=== PATIENT | male | born 1935 | race Caucasian/White ===

== ENCOUNTER 2018-09-29 15:17 | Inpatient (IN) | payer OTHER ==
[~2018-09-29] VITALS: Ht 167.6 cm; Wt 83.1 kg
--- NOTE | ~2018-09-29 | OP ---
[address] [address] OPERATIVE REPORT Name: YOMAIRA YANCEY Room: [address] ADM IN M.R.#: [id number] Admission: 09/29/18 Attend Phys: Waqar Jacome MD Discharge: Date of : 37 Report #: [id number] THIS REPORT FOR: //name// CC: [facility] physician/PCP Waqar Jacome DATE OF SERVICE: 10/16/2018 PREOPERATIVE DIAGNOSIS: Right pneumothorax. POSTOPERATIVE DIAGNOSIS: Right pneumothorax. OPERATION: Placement of right chest tube, 28-Belgian. SURGEON: Estuardo Mullen MD ANESTHESIA: Local. ESTIMATED BLOOD LOSS: Minimal. SPECIMEN: None. DESCRIPTION OF PROCEDURE: After informed consent was obtained, the patient was placed supine on the ICU bed. The area was prepped and draped in the usual sterile fashion. Timeout was performed by dc and the ICU nurse. The area was prepped and draped in the usual sterile fashion. The area was anesthetized with 30 mL 1% lidocaine plain creating a field block. A 2 cm incision was made over the right fourth interspace. A finger dissection was carried out to the pleura. The pleura was incised sharply. A mcconnell of air was noted. A 28-Belgian chest tube was placed superiorly. It was then secured to the skin with a 2-0 silk suture and wrapped around the chest tube. Sterile occlusive dressing was applied. COMPLICATIONS: None. DISPOSITION: The patient will stay in ICU and a stat portable chest x-ray is pending. By: [id number] Mullen MD /nt
[2018-09-29 15:17] VITALS: BP 118/82
[2018-09-29 15:49] LABS: ABSOLUTE BASOPHILS 0.1 thou/uL (0.0-0.2); ABSOLUTE LYMPHOCYTES 2.5 thou/uL (0.8-5.3); ABSOLUTE MONOCYTES 1.4 thou/uL (0.0-1.2); ABSOLUTE NEUTROPHILS 14.3 thou/uL (1.6-8.1); BASOPHILS 0.5 %; EOSINOPHILS 0.1 %; HEMATOCRIT 42.7 % (42.0-52.0); HEMOGLOBIN 14.3 gm/dL (14.0-18.0); LYMPHOCYTES 13.6 %; MCH 29.3 pg (26.0-34.0); MCHC 33.6 g/dL (28.0-37.0); MCV 87.2 fL (80.0-100.0); MONOCYTES 7.6 %; MPV 9.2 fl. (7.2-11.1); NUCLEATED RBCS 0 /100WBC; PLATELET COUNT* 296 thou/uL (150-400); POLYS 78.2 %; RDW-CV 13.7 % (10.5-14.5); WBC 18.3 thou/uL (4.0-11.0)
[2018-09-29 15:54] LABS: BE -0.7 mmol/L (-2 to +3); PCO2 26.2 mmHg (35.0-45.0); PO2 61.7 mmHg (75.0-100.0); pH 7.514 (7.340-7.450)
[2018-09-29 15:58] LABS: INR 1.4; PROTIME 13.8 Seconds (9.20-11.50)
[2018-09-29 16:55] LABS: ANION GAP 17 mmol/L (7-16); BUN 34 mg/dL (7-18); CALCIUM 8.6 mg/dL (8.5-10.1); CHLORIDE 100 mmol/L (98-107); CO2 19 mmol/L (21-32); CREATININE 1.7 mg/dL (0.6-1.3); GLUCOSE 136 mg/dL (70-99); POTASSIUM 4.5 mmol/L (3.5-5.1); SODIUM 136 mmol/L (136-145)
[2018-09-29 17:06] LABS: ALBUMIN 2.5 g/dL (3.4-5.0); ALKALINE PHOSPHATASE 142 U/L (46-116); LIPASE 68 U/L (73-393); NT-PRO BRAIN NAT PEPTIDE 3757 pg/mL (<300); SGOT 79 U/L (15-37); SGPT 88 U/L (30-65); TOTAL BILIRUBIN 1.9 mg/dL (<0.1-1.0); TOTAL PROTEIN 7.1 g/dL (6.4-8.2); TROPONIN-I LEVEL <0.06 ng/mL (<0.06)
[2018-09-29 18:25] VITALS: BP 118/74
[2018-09-29 18:42] VITALS: BP 168/75
[2018-09-29] MEDS ORDERED: LOPRESSOR25 PO (18:58)
[2018-09-29] MEDS ORDERED: ASPIR 8181 M1 PO (18:58)
--- NOTE | 2018-09-29 19:15 | NUR ---
PT ADMITTED TO ROOM 232 VIA CART FROM ED AT APPROXIMATELY 1845. ADMISSION HISTORY COMPLETED. REFER TO CHARTING. FAMILY AT BEDSIDE. VSS. REPORT GIVEN TO FRIDA LIU RN.
[2018-09-29 20:40] VITALS: BP 137/76
[2018-09-30] VITALS: BP 145/76
[2018-09-30 05:34] VITALS: BP 173/88
--- NOTE | 2018-09-30 06:09 | NUR ---
AWAKE MOST OF SHIFT. ASSESSMENT DOCUMENTED. MEDS GIVEN PER -APR. PT REFUSED ASPIRIN THIS SHIFT. PT A&O 0-2 THIS SHIFT. PT VERY CONFUSED AND FORGETFUL. PT BECAME AGGITATED AND COMBATIVE THIS SHIFT, SCREAMING PROFANITIES STATING THAT WE ARE TRYING TO KILL HIM AND THAT THE STAFF HAD PUT A "BLUE BODY BAG" UNDER HIM. SECURITY CALLED TO ROOM PATIET INCREASING BECAME HOSTILE. PRN HALDOL GIVEN. PT STILL REFUSING TO WEAR O2, PULLED OFF HEART MONITOR, AND ATTEMPTING TO PULL OUT IV. NOTIFIED, ORDERS RECIEVED. CALLED PTS , SHE STATED THAT SHE WOULD BE UP HERE SOON SHE WOULD BE ABLE TO, "IN A COUPLE OF HOURS". PTS STATED THAT IT WAS NORMAL FOR HIM TO GET ANGRY WHEN HE BECOMES CONFUSED. HALDOL GIVEN PER , PT CURRENTLY CALM WITH HEART MONITOR, IV AND OXYGEN IN PLACE. WILL CONTINUE WITH PLAN OF CARE.
[2018-09-30 08:00] VITALS: BP 152/82
[2018-09-30 12:00] VITALS: BP 112/62
[2018-09-30 16:00] VITALS: BP 120/67
--- NOTE | 2018-09-30 16:23 | NUR ---
SW met with pt to complete initial assessment, introduce self, and SW role. Pt alert, [facility] and pt in room also [facility]. Pt lives at home with and has a supportive family. Pt has a cane and 2 RWs but does not use them. SW to continue to follow to assist with safe dc planning.
--- NOTE | 2018-09-30 16:34 | 2DMMODE ---
[place] [address] 2 D/M-MODE ECHOCARDIOGRAM Name: YANCEYBRANDY Room: [address] IN [facility]#: [id number] Admission: 09/29/18 Attend Phys: Waqar Jacome, Discharge: Date of : 37 Date of Service: 09/30/18 1633 Report #: [id number] THIS REPORT FOR: //name// APPROVED REPORT Study performed: 09/30/2018 14:18:50 EXAM: Comprehensive 2D, Doppler, and color-flow Echocardiogram Patient Location: In-Patient Room #: [facility] Status: routine BSA: 1.90 HR: 82 bpm BP: 112/62 mmHg Rhythm: NSR Other Information Study Quality: Adequate Indications Cardiomegaly 2D Dimensions IVSd: 13.44 (7-11mm) LVOT Diam: 21.02 (18-24mm) LVDd: 41.58 mm PWd: 11.63 (7-11mm) Ascending Ao: 36.24 (22-36mm) LVDs: 26.88 (25-40mm) Aortic Root: 34.72 mm Volumes Left Atrial Volume (Systole) LA ESV Index: 28.40 mL/m2 Aortic Valve AoV Peak Michael.: 2.58 m/s AO Peak Gr.: 26.69 mmHg LVOT Max P.93 mmHg AO Mean Gr.: 14.79 mmHg LVOT Mean P.20 mmHg LVOT Max V: 1.22 m/s AO V2 VTI: 44.95 cm LVOT Mean V: 0.83 m/s MALA (VTI): 1.91 cm2 LVOT V1 VTI: 24.72 cm Mitral Valve E/A Ratio: 0.88 MV Decel. Time: 360.52 ms MV E Max Michael.: 1.19 m/[place] [address] 2 D/M-MODE ECHOCARDIOGRAM Name: YANCEYBRANDY Room: [address] IN ..#: [id number] Admission: 09/29/18 Attend Phys: Waqar Jacome, Discharge: Date of : 37 Date of Service: 09/30/18 1633 Report #: [id number] MV PHT: 104.55 ms MVA (PHT): 2.10 cm2 TDI E/Lateral E': 13.22 E/Medial E': 17.00 Medial E' Michael.: 0.07 m/s Lateral E' Michael.: 0.09 m/s Pulmonary Valve PV Peak Michael.: 1.07 m/s PV Peak Gr.: 4.55 mmHg Left Ventricle The left ventricle is normal size. There is normal LV segmental wall motion. Mild concentric left ventricular hypertrophy. Left ventricular systolic function is normal. The left ventricular ejection fraction is within the normal range. LVEF is 60-65%. Grade I - abnormal relaxation pattern. Right Ventricle The right ventricle is normal size. The right ventricular systolic function is normal. Atria The left atrium size is normal. The right atrium size is normal. Aortic Valve Bioprosthetic aortic valve is present. No aortic regurgitation is present. Mild aortic stenosis. Mitral Valve Mild mitral annular calcification. Trace mitral regurgitation. No evidence of mitral valve stenosis. Tricuspid Valve The tricuspid valve is normal in structure. Unable to assess PA pressure. Trace tricuspid regurgitation. Pulmonic Valve Pulmonic valve is not well visualized. Trace pulmonic regurgitation. Great Vessels The aortic root is normal in size. IVC is normal in size and collapses >50% [place] [address] 2 D/M-MODE ECHOCARDIOGRAM Name: YOMAIRA YANCEY J Room: [address] IN [facility]#: [id number] Admission: 09/29/18 Attend Phys: Waqar Jacome, Discharge: Date of : 37 Date of Service: 09/30/18 1633 Report #: [id number] Pericardium There is no pericardial effusion. <Conclusion> Mild concentric left ventricular hypertrophy. LVEF is 60-65%. Bioprosthetic aortic valve is present. Mild aortic stenosis. <ELECTRONICALLY SIGNED> By: Glenroy South MD, [facility] 09/30/18 1633 1633 163 Glenroy South MD, [facility] /INF
--- NOTE | 2018-09-30 17:03 | EKG ---
[place] [address] ELECTROCARDIOGRAM REPORT Name: YOMAIRA YANCEY Room: [address] ADM IN [facility].#: [id number] Admission: 09/29/18 Attend Phys: Waqar Jacome MD Discharge: Date of : 37 Report #: [id number] THIS REPORT FOR: //name// [facility] ED Test Date: 2018-09-29 Test Time: 15:23:47 Pat Name: YOMAIRA YANCEY Department: Room: 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: [facility] : 1935 Requested By: Kaz Christian Order Number: [id number] MD: Glenroy South Measurements Intervals Paulina Rate: 151 P: IL: QRS: -12 QRSD: 135 T: 194 QT: 323 QTc: 513 Interpretive Statements multifocal atrial tachycardia Paired ventricular premature complexes Nonspecific intraventricular conduction delay Partial missing lead(s): V2 No previous ECG available for comparison Electronically Signed On 09-30-2018 17:02:47 CDT by Glenroy South [email or web address] <ELECTRONICALLY SIGNED> By: Glenroy South MD, [facility] 09/30/18 1702 1523 152 Glenroy South MD, [facility] /EPI
--- NOTE | 2018-09-30 18:57 | NUR ---
ASSUMED CARE OF PT AT 0730. PT RESTING IN BED. PT A&0X3, FORGETFUL AT TIMES, FOLLOWS COMMANDS, COOPERATIVE AND APPROPRIATE DURING THE DAY. AT APPROXIMATELY 1815, PT BECAME IMPULSIVE, TRYING TO GET OUT OF BED. ORIENTED X2. PT RE ORIENTED TO ROOM AND CALL LIGHT. PT HAD A GOOD DAY. PT UP TO CHAIR FOR MEALS, COMPLETE SET UP BATH AT SINK AND SHAVED WITH ASSISTANCE. PT DENIES ANY PAIN OR SHORTNESS OF BREATH THROUGHOUT SHIFT. PT AT BEDSIDE THIS AM AND AFTERNOON AND UPDATED ON CURRENT PLAN OF CARE. PT TRACING SR ON THE PRODUCT SAFETY COMPLIANCE LEADER THROUGHOUT SHIFT. ON 4L NC SAT 93-96%. PT UP WITH 1 ASSIST. AM ASSESSMENT CHARTED. MEDICATIONS PER APR. PT REPOSITIONS SELF WITH REMINDERS. HOURLY ROUNDING OBSERVED. BED IN LOW POSITION. CALL LIGHT WITHIN REACH. WILL CONTINUE PLAN OF CARE.
[2018-09-30 20:20] VITALS: BP 176/84
[2018-09-30 21:58] LABS: BE -7.3 mmol/L (-2 to +3); PCO2 25.9 mmHg (35.0-45.0)
[2018-09-30 22:01] LABS: PO2 58.1 mmHg (75.0-100.0)
--- NOTE | 2018-09-30 23:20 | NUR ---
PT'S O2 SAT WAS BETWEEN 79 AND LOW 80'S ON 4L NC. O2 BUMPED UP TO 6L, NO SIGNIFICANT CHANGE. RT PUT PT ON NRB 15L, PT STILL SATTING IN THE 80'S. DR MONTERROSO NOTIFIED. ABG ORDERED. PO2 CL AT 58.1, O2 SAT CL AT 87.5. CTA ORDERED, PT DOES NOT MEET CRTIERIA PER CT STAFF. ENGINEER CONDUCTOR (1.7) IS HIGHER THAN CUTOFF (1.3). GFR (39) IS LOWER THAN CUTOFF (46). CXRAY ORDERED, DDIMER LAB ORDERED. PT ON BIPAP. CONDUSED AND ATTEMPTED TO PULL MASK ODD SEVERALLY. SITTER IN PLACE NOW. WILL CONTINUE TO MONITOR.
[2018-10-01] VITALS (21 sets, daily range): BP systolic 83–156; BP diastolic 47–87
[2018-10-01 01:11] LABS: BE -5.2 mmol/L (-2 to +3); PCO2 33.9 mmHg (35.0-45.0); pH 7.369 (7.340-7.450)
[2018-10-01 01:16] LABS: PO2 189.9 mmHg (75.0-100.0)
[2018-10-01 05:21] LABS: HEMATOCRIT 41.1 % (42.0-52.0); HEMOGLOBIN 13.4 gm/dL (14.0-18.0); MCH 28.5 pg (26.0-34.0); MCHC 32.6 g/dL (28.0-37.0); MCV 87.5 fL (80.0-100.0); MPV 8.8 fl. (7.2-11.1); NUCLEATED RBCS 0 /100WBC; PLATELET COUNT* 342 thou/uL (150-400); RDW-CV 13.5 % (10.5-14.5); WBC 25.7 thou/uL (4.0-11.0)
[2018-10-01 05:43] LABS: CALCIUM 8.8 mg/dL (8.5-10.1); CREATININE 1.7 mg/dL (0.6-1.3); POTASSIUM 4.1 mmol/L (3.5-5.1)
--- NOTE | 2018-10-01 05:46 | NUR ---
PT ORIENTED TO SELF, PLACE AND SITUATION. CONFUSION AND FORGETFULNESS NOTED. BREATHING LABORED, OTHERWISE VSS. PT CURRENTLY ON BIPAP, RT TRIED CHANGING PT TO NRB THIS AM, PT BREATHING FAST. RT PUT PT BACK ON BIPAP. LOVENOX 80MG GIVEN THIS SHIFT FOR SUSPECTED PE. VQ SCHEDULED THIS AM @ 0800. PT HAS 1:1 SITTER THIS SHIFT DUE TO CONFUSION AND MULTIPLE ATTEMPTS TO REMOVE BIPAP MASK. HALDOL GIVEN THIS AM. CALL LIGHT WITHIN REACH. HOURLY ROUNDINGS MADE. WILL CONTINUE TO MONITOR.
[2018-10-01 06:07] LABS: ABSOLUTE LYMPHOCYTES 2.1 thou/uL (0.8-5.3); ABSOLUTE MONOCYTES 1.5 thou/uL (0.0-1.2); ABSOLUTE NEUTROPHILS 22.1 thou/uL (1.6-8.1); ANISOCYTOSIS 1+; PLATELET ESTIMATE ADEQUATE; POIKILOCYTOSIS 1+
--- NOTE | 2018-10-01 10:14 | NUR ---
Pt transferring to ICU 1 post VQ scan
[2018-10-01 10:54] LABS: BE -5.4 mmol/L (-2 to +3); PCO2 28.6 mmHg (35.0-45.0); PO2 62.8 mmHg (75.0-100.0); pH 7.409 (7.340-7.450)
--- NOTE | 2018-10-01 11:39 | NUR ---
ASSUMED CARE OF PT AT 0730. PT A&0 TO SELF AND TIME. BIPAP IN PLACE. TACHYPNEA NOTED- RESPIRATORY RATE IN THE 40'S-50'S. PRN HALDOL GIVEN WITH MINIMAL RELIEF. DR DOW NOTIFIED. ORDERS RECEIVED FOR ATIVAN AND TRANSFER TO ICU. ATIVAN GIVEN WITH NO RELIEF- PT CONTINUES TO BE AGITATED, PULLING AT BIPAP, MUMBLING. PT MORE RESTLESS AFTER RECEIVING ATIVAN. PT TRANSFERRED TO NUCLEAR MED FOR PERFUSION PART OF VQ SCAN AND THEN TRANSFERRED TO ICU BED 1 WITH ALL BELONGINGS AND CHART. REPORT GIVEN TO NIDA GARCIA. ATTEMPTED TO CONTACT , VOLODYMYR, UNABLE TO REACH HER.
--- NOTE | 2018-10-01 11:44 | NUR ---
CUDAY CATHETER INSERTED.
--- NOTE | 2018-10-01 12:00 | NUR ---
HEART RATE 130-[address] AT [address] WITH PACS. DR DOW NOTIFIED. REPORTED PT HAS NOT RECEIVED PO METOPROLOL. ASKED IF METOPROLOL CAN BE SWITCHED TO IV. NO ORDERS RECEIVED.
--- NOTE | 2018-10-01 12:57 | NUR ---
PT TRANSFERED TO ICU. PT CONFUSED, PULLING AT LINES, MUBLING. LABORED BREATHING, RESPIRATIONS 40'S -50'S. PER PREVIOUS RN ATIVAN MADE PT MORE ANXIOUS. DR NOTIFIED. RECEIVED ORDER FOR ONE TIME SHYAM TO ASSIST PT TO RELAX AND IMPROVE OXYGENATION. ANESTHEIA NOTIFIED FOR INTUBATION. AT THIS TIME PT APPEARED CLAM, RESTING WITH EYES CLOSE, RESONSIVE TO TOUCH, RESPIRATIONS IN 30-33. PER PULMONARY WILL MONITOR PT , REPEAT ABG'S AT 1400 REASSESS NEED FOR INTUBATION. RECEIVED ORDER IF PT HAD ANY CHANGES IN RESIRATORY STATUS TO NOTIFY DR. IF RESIRATIONS INCREASED AND PT NEEDED TO BE INTUBATED, PT CAN BE INTUBATED. AND DTR ABLE TO SPEAK WITH PULMONARY.
[2018-10-01 14:18] LABS: ANTI-Xa-UNFRACTIONATED HEP 7.442; BE -2.5 mmol/L (-2 to +3); PCO2 30.8 mmHg (35.0-45.0); PO2 77.7 mmHg (75.0-100.0); pH 7.442 (7.340-7.450)
--- NOTE | 2018-10-01 18:38 | NUR ---
PT INTUBATED AT 1807. 100 OF SUCCINATE AND 120 MG OF ETOMIDATE.
--- NOTE | 2018-10-01 18:49 | NUR ---
AFTER INTUBATION PT ST 100-140'S. DR DRAPER. AWAITING ORDERS.
[2018-10-01 19:36] LABS: BE -5.1 mmol/L (-2 to +3); PCO2 29.2 mmHg (35.0-45.0); PO2 105.1 mmHg (75.0-100.0); pH 7.411 (7.340-7.450)
[2018-10-01 19:42] LABS: CALCIUM 8.5 mg/dL (8.5-10.1); CREATININE 1.8 mg/dL (0.6-1.3); MAGNESIUM 2.4 mg/dL (1.8-2.4); PHOSPHORUS* 4.4 mg/dL (2.5-4.9); POTASSIUM 4.4 mmol/L (3.5-5.1)
[2018-10-01 19:47] LABS: URINE BILIRUBIN NEGATIVE (Negative); URINE BLOOD 1+ (Negative); URINE CLARITY CLEAR; URINE COLOR YELLOW; URINE GLUCOSE-RANDOM NEGATIVE (Negative); URINE KETONES NEGATIVE (Negative); URINE LEUKOCYTES-REFLEX NEGATIVE (Negative); URINE NITRITE-REFLEX NEGATIVE (Negative); URINE PROTEIN NEGATIVE (Negative); URINE UROBILINOGEN 0.2 E.U./dl (0.2-1.0)
[2018-10-01 19:56] LABS: AMP/METHAMP Negative (Negative); BARBITURATES Negative (Negative); BENZODIAZEPINES Negative (Negative); COCAINE Negative (Negative); METHADONE Negative (Negative); OPIATES Negative (Negative); PCP Negative (Negative); THC Negative (Negative)
[2018-10-01 19:59] LABS: CASTS None Seen /LPF (None Seen); CRYSTALS None Seen /LPF (None Seen); SQUAMOUS >10 Many /LPF (0-3); URINE RBC 0-2 Rare /HPF (0-2); URINE WBC-REFLEX 6-15 Few /HPF (0-5)
[2018-10-02] VITALS (73 sets, daily range): BP systolic 66–141; BP diastolic 37–82
--- NOTE | 2018-10-02 03:48 | NUR ---
PATIENT BP RUNNING LOW ON SEDATION AND MEDICATIONS FOR HR CONTROL. SPOKE WITH PHYSICIAN AND ORDERS RECEIVED TO START NEOSYNEPHRINE AND PLACE CENTRAL LINE. CENTRAL LINE PLACED BY DR. HAN AT 2158, RIGHT IJ TRIPLE LUMEN.
[2018-10-02 04:42] LABS: BE -3.4 mmol/L (-2 to +3); PCO2 33.8 mmHg (35.0-45.0); PO2 75.1 mmHg (75.0-100.0); pH 7.399 (7.340-7.450)
[2018-10-02 04:53] LABS: HEMATOCRIT 36.6 % (42.0-52.0); HEMOGLOBIN 11.9 gm/dL (14.0-18.0); MCH 28.6 pg (26.0-34.0); MCHC 32.6 g/dL (28.0-37.0); MCV 87.7 fL (80.0-100.0); MPV 8.9 fl. (7.2-11.1); RBC 4.18 mil/uL (4.50-6.00); RDW-CV 13.9 % (10.5-14.5); WBC 19.6 thou/uL (4.0-11.0)
[2018-10-02 05:15] LABS: ALBUMIN 1.8 g/dL (3.4-5.0); CALCIUM 8.2 mg/dL (8.5-10.1); CREATININE 2.4 mg/dL (0.6-1.3); MAGNESIUM 2.5 mg/dL (1.8-2.4); POTASSIUM 4.3 mmol/L (3.5-5.1); TOTAL BILIRUBIN 1.9 mg/dL (<0.1-1.0); TOTAL PROTEIN 6.5 g/dL (6.4-8.2)
--- NOTE | 2018-10-02 07:03 | NUR ---
ASSESSMENTS CHARTED. MEDICATIONS INFUSING. FENTANYL AT 75, NEOSYNEPHRINE AT 50, CARDIZEM AT 15. PATIENT REMAINS IN RESTRAINTS, ABLE TO WAKE UP OVER SEDATION AGITATED. BLOOD PRESSURE LABILE. HEART RATE LABILE FROM 70S-140S. PATIENT STILL BREATHING OVER THE VENTILATOR. HELD METOPROLOL DOSES DURING SHIFT FOR LOW BP. SCREENED POSITIVE FOR SEPSIS. CALLED PHYSICIAN AND ORDERS RECEIVED.
--- NOTE | 2018-10-02 09:12 | CON ---
[address] [address] CONSULTATION Name: YANCEYBRANDY Room: [address] ADM IN .R.#: [id number] Admission: 09/29/18 Attend Phys: Waqar Jacome MD Discharge: Date of : 37 Report #: [id number] THIS REPORT FOR: //name// CC: [facility] physician/PCP Waqar Krause MD DATE OF SERVICE: 10/01/2018 PULMONARY CONSULTATION ATTENDING PHYSICIAN: Lia Krause MD LOCATION: The patient was in [facility], has now recently been moved to the ICU bed 1. INDICATION FOR CONSULTATION: Acute hypoxic respiratory failure, progressive hypoxemia and infiltrates on chest x-ray. HISTORY OF PRESENT ILLNESS: The patient is an 82-year-old male, a nonsmoker with history of coronary artery bypass grafting and valve replacement, I believe it is an aortic valve, presented to the Emergency Room Department with weakness and unable to be moved from the ground since yesterday morning. It appears the patient had a 12-24 hour history somewhere on 09/28/2018 of having altered mental status. He did have some cough and shortness of breath with some fevers and he was markedly hypoxic in the Emergency Room on 4 liters, was having active hallucinations, had a high white count of 25,000, was cultured, started on antibiotics. Initially again, he was on 4 liters last night. He progressively increased to a 30-40 liters high flow cannula, then ended up on 80% BiPAP sometime early this morning. PO2 on 80% BiPAP at 14/6, is now in the low 60s, pH and pCO2 are within normal limits. The patient is confused, was given some Haldol and Geodon and still has agitation and hallucinations. Question whether he had altered mental status, it appears he was watched for 24 hours either on the floor, in his bedroom and he may have aspirated at some point in time with his decreased mental status. No definite nausea or vomiting was noted, though. PAST MEDICAL HISTORY: Coronary artery disease with previous valve replacement. ALLERGIES: He has no known medical allergies. Denies any history of hypertension or diabetes. No prior history of COPD or asthma that anyone is aware of. CURRENT MEDICATIONS: Include IV vancomycin, he has had Geodon 20 mg IM, lorazepam 1 or 2 mg IM and then Geodon another 10 mg IM. He has had one dose of furosemide 40 mg once daily, Pepcid 20 mg daily, azithromycin was given 1 [place] [address] CONSULTATION Name: YOMAIRA YANCEY Room: [address] IN [facility]#: [id number] Admission: 09/29/18 Attend Phys: Waqar Jacome MD Discharge: Date of : 37 Report #: [id number] and 80 mg of enoxaparin was also given once. Also, on Zosyn, metoprolol 25 mg b.i.d., Solu-Medrol dose is 40 mg IV b.i.d. with DuoNeb treatments. Also, aspirin 81 mg daily, potassium supplements as needed. FAMILY HISTORY: Negative for premature cardiopulmonary disease. SOCIAL HISTORY: Nonsmoker, nondrinker. Lives with his in [place], [place]. 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 No history of recent travel or sick or ill exposure. REVIEW OF SYSTEMS: A 14 review of systems was attempted, review was negative except for pertinent positives noted in the HPI. PHYSICAL EXAMINATION: GENERAL: An 82-year-old male, currently short of breath when I saw him in the ICU on the BiPAP machine. VITAL SIGNS: Blood pressure is 150/86, heart rate is 110, respirations were 36-40 and labored and then temperature is 36.8, the highest I have seen he is 36.5 currently, he is 5 feet 7 inches tall, weight 81 kilograms or 176 pounds and BMI is 29. HEENT: Pupils are midpoint and reactive. Mucous membranes appear slightly dry. He has an oral nasal facemask noted. Still breathing quite tachypneic on the BiPAP mask. He is currently on 80% at 14/6. NECK: Supple, without nodes. No increased jugular venous pressure. CHEST: Reveals bilateral rhonchi and bilateral crackles, right greater than the left, use of accessory muscles is noted. CARDIOVASCULAR: Sinus tachycardia without murmur, gallop or rub. Heart rate is 110. ABDOMEN: Soft, no masses or megaly. EXTREMITIES: Slightly cool. Peripheral pulses 0-1+. NEUROLOGIC: He moves all fours to commands. He is picking at the air with his arms and he does not follow any specific commands at this time. He will withdraw to tactile stimuli. He does not answer any simple questions. LABORATORY AND DIAGNOSTIC DATA: From 10/01/2018, this morning, hemoglobin is 13.5, white count 25,700 with left shifted differential 86% segmented neutrophils and only 8% lymphocytes, 6% monocytes. Sodium is 143, potassium is 4.1, BUN is 40, creatinine is 1.7. Previous creatinine was 1.7 and GFR is 39, glucose is 161. Prealbumin is 5.8. TSH is 0.77, albumin is 2.5. Chest x-ray shows diffuse infiltrates, most likely interstitial infiltrates bilateral pneumonia. There are no perfusion defects noted to suggest pulmonary embolism. Chest x-ray shows worsening right greater than left bilateral interstitial infiltrates. No definite heart failure noted. Echocardiogram showed EF of 60%, PA pressures were normal throughout with valve, vessel, a bioprosthetic aortic valve was noted. No aortic regurgitation was noted. [place] [address] CONSULTATION Name: YOMAIRA YANCEY Room: [address] IN [facility]#: [id number] Admission: 09/29/18 Attend Phys: Waqar Jacome MD Discharge: Date of : 37 Report #: [id number] mild mitral annular calcification. No evidence of mitral stenosis. He had no pulmonary hypertension. Cultures are pending. IMPRESSION: 1. Acute hypoxic respiratory failure, multifactorial. 2. Diffuse infiltrates, right greater than left. Either aspiration pneumonia or prior pneumonia, viral with diffuse breath. 3. Hypoxemia. 4. Encephalopathy. 5. Acute renal insufficiency with creatinine of 1.7. Urine output is only fair. PLAN: Continue with vancomycin and Zosyn. We will check legionella urinary antigen and pneumococcal urinary antigen. He is too unstable for bronchoscopy at this time. He may need intubation sooner rather than later. He is still quite tachypneic at this time on the 80% BiPAP. We will increase him up to 14/8 and a backup rate of 20, see if that does not help him relax a little bit and work with the machine. If he continues to have fatigue or rapid respiratory rates, will have then anesthesia intubate him and then will add a low dose PEEP at 7 cm and see if we can control his infiltrates, see if he is going into early ARDS, like a triple lumen catheter is indicated for venous access and for pressors, which may be needed and he may need some sedation or paralysis meds once he gets on the ventilator. Prognosis is guarded. There is no family around for me to talk with currently, but we will continue to follow up. This has been a 37-minute critical care consult. <ELECTRONICALLY SIGNED> By: Larry Mcgrath MD 10/02/18 0912 1138 [id number] Mcgrath MD /nt
--- NOTE | 2018-10-02 10:18 | NUR ---
WOUND CARE NOTE: CONSULT RECEIVED FOR LOW VAUGHN. PATIENT WITH CORRECT CARE PLAN IN PLACE, ON TURNING SCHEDULE. I TURNED LOW AIR LOSS FUNCTION ON, SPOKE WITH PATIENT'S RN ON ENSURING THIS REMAINS ON. RECOMMEND TURN Q2 HOURS ENCOURAGE GOOD NUTRTION/HYDRATION ONCE ABLE KEEP LOW AIR LOSS FUNCTION ON BARRIER OINTMENT BID AND PRN INCONTINENCE NO BRIEFS IN BED LIMIT HOB TO <30 DEGREES IF ABLE LIMIT LAYERS OF LINEN UNDER PATIENT
--- NOTE | 2018-10-02 11:37 | NUR ---
ICU rounds: Pt on multiple gtts. Pt on vent and has osei in place. Pt current in soft restraints. On Jevity 1.5 with a goal of 55. Following.
--- NOTE | 2018-10-02 16:36 | CON ---
[address] [address] CONSULTATION Name: YOMAIRA YANCEY Room: [address] ADM IN ..#: [id number] Admission: 09/29/18 Attend Phys: Waqar Jacome MD Discharge: Date of : 36 Report #: [id number] THIS REPORT FOR: //name// CC: [facility] physician/PCP Waqar Jacome DATE OF SERVICE: 10/02/2018 CARDIOLOGY CONSULTATION HISTORY OF PRESENT ILLNESS: The patient is an 82-year-old white male who I was asked to see in the hospital today after he was noted to have an irregular heartbeat. The history is obtained from the patient's spouse. The patient is currently intubated and sedated. There are no old records available. According to the , the patient presented a couple of years ago with shortness of breath. He was admitted to [facility]. He apparently found to have evidence of coronary artery disease and had a coronary stent placed. He was also found to have valvular heart disease and underwent open heart surgery by Dr. Grover Lucio with valve replacement using a porcine valve and a single saphenous vein graft was used for bypass surgery. He has done fairly well since that time and stays fairly active including mowing his yard. He was actually doing well until about a week ago, he started feeling tired. Four days ago, he was weak and fell at home and could not get up. He had been coughing. Family brought him to the hospital and he was admitted with pneumonia. Yesterday, he had increasing shortness of breath and confusion. He developed respiratory failure and had to be intubated. He was moved to the ICU. He was noted to have an irregular heartbeat and I was asked to see him for further evaluation and treatment. According to , he has had no recent chest pain. He has had no edema. She denied any palpitation or syncope. PAST MEDICAL HISTORY: Significant for hypertension, hyperlipidemia. MEDICATIONS: His only medication metoprolol. He was on a cholesterol pill in the past. He does not take aspirin every day. ALLERGIES: He has no known drug allergies. FAMILY HISTORY: Negative for heart disease. SOCIAL HISTORY: He is . He and his live in [place]. 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 Quit smoking years ago, rarely drinks alcohol. REVIEW OF SYSTEMS: He has had no history of stroke, asthma, peptic ulcer disease, liver disease, kidney disease, cancer, psychiatric illness, [place] [id number] CONSULTATION Name: YOMAIRA YANCEY Room: [address]#: [id number] Admission: 09/29/18 Attend Phys: Waqar Jacome MD Discharge: Date of : 36 Report #: [id number] PHYSICAL EXAMINATION: GENERAL: Revealed an elderly male, lying in bed on the ventilator. VITAL SIGNS: He had a blood pressure of 100/70s, pulse is 90, he is afebrile. HEENT: He was anicteric. Conjunctivae are pink. Mucous membranes appear moist. NECK: Veins do not appear distended. CHEST: Clear to auscultation. CARDIOVASCULAR: Regular rate and rhythm. Occasional prematurity. ABDOMEN: Soft. EXTREMITIES: Had no edema. Dorsalis pedis pulse cannot be palpated. SKIN: Cool and dry. NEUROLOGIC: He would withdraw from painful stimuli. ECG on admission 3 days ago appeared to show multifocal atrial tachycardia with occasional PVC. Currently, the patient appears to be in a sinus rhythm on IV diltiazem with occasional PAC, occasional premature beats were aberrantly conducted. His workup so far, he had an echocardiogram 2 days ago that showed left ventricular hypertrophy, ejection fraction 60%. Prosthetic aortic valve was noted with mild stenosis of the valve. No significant valve regurgitation. LABORATORY DATA: His workup so far on admission, he had a chest x-ray that showed tortuous aorta, evidence of previous sternotomy, right lower lobe infiltrate consistent with pneumonia. Chest x-ray today shows the patient is now intubated, worsening of perihilar infiltrates, normal heart size, no pneumothorax. His lab work: Sodium 144, BUN is 50, creatinine 2.4, was 1.7 on admission, glucose 148, SGPT 124, SGOT 39, bilirubin 1.9, alkaline phosphatase 120, albumin 1.8. Troponin 0.1. BNP 3757. TSH 0.7. His white blood cell count 19.6, hemoglobin 11.9. IMPRESSION AND RECOMMENDATIONS: 1. Respiratory failure. The patient with pneumonia. Currently intubated. 2. Multifocal atrial tachycardia. The patient on IV diltiazem. I would recommend resuming his beta gaurav. 3. History of hypertension. Currently, blood pressure low. The patient is on Genaro-Synephrine. 4. Hyperlipidemia. The patient was on a statin drug in the past. 5. Previous tobacco abuse. 6. Acute renal failure. 7. Elevated liver function studies. <ELECTRONICALLY SIGNED> By: Glenroy South MD, [facility] 10/02/18 1636 [id number] [id number] South MD, FACC /nt
--- NOTE | 2018-10-02 17:51 | NUR ---
This racebook writer resumed care of pt after report was received. Full assessments completed. Collaborated with physician according to pt conditon and noted changes made. Pt required a few extras doses of sedation (versad) per doctor due to restlessness and agitation. Titrated drips to maintain b/p and MAP above 65 goal was met throughout shift. RT adjusted setting on ventilator to meet pt resp requirements. Strict I&O monitored throughout shift due to decrease urinary output. Skin is intact but diaphoretic. Restriants in place no s/s of skin break down noted, see assessment. R picc line dressing change. Repositioned every two hours and oral care completed every 2 hours, was present majority of the day.Pt is progressing towards overall goals.
[2018-10-03] VITALS (110 sets, daily range): BP systolic 89–175; BP diastolic 42–92
[2018-10-03 03:53] LABS: HEMATOCRIT 31.7 % (42.0-52.0); HEMOGLOBIN 10.4 gm/dL (14.0-18.0); MCH 28.7 pg (26.0-34.0); MCHC 32.8 g/dL (28.0-37.0); MCV 87.8 fL (80.0-100.0); MPV 9.1 fl. (7.2-11.1); RBC 3.62 mil/uL (4.50-6.00); RDW-CV 14.5 % (10.5-14.5); WBC 18.3 thou/uL (4.0-11.0)
[2018-10-03 04:13] LABS: ALBUMIN 1.5 g/dL (3.4-5.0); CREATININE 2.4 mg/dL (0.6-1.3); MAGNESIUM 2.9 mg/dL (1.8-2.4); TOTAL BILIRUBIN 1.4 mg/dL (<0.1-1.0)
[2018-10-03 05:42] LABS: BE -2.9 mmol/L (-2 to +3); PCO2 36.3 mmHg (35.0-45.0); PO2 92.2 mmHg (75.0-100.0); pH 7.392 (7.340-7.450)
--- NOTE | 2018-10-03 11:11 | NUR ---
ICU rounds: TF at 45, goal is 55. Calmer today. CM spoke with Pt's in room, per , Pt had not been walking well or eating/drinking well since the beginning of September. Prior to Pt was independent. Pt was at [facility] skilled post open heart surgery, 2 years ago. If Pt needs skilled at dc, would want [facility]. Following.
--- NOTE | 2018-10-03 12:51 | CON ---
[address] [address] CONSULTATION Name: YOMAIRA YANCEY Room: [address] IN M.R.#: [id number] Admission: 09/29/18 Attend Phys: Waqar Jacome MD Discharge: Date of : 36 Report #: [id number] THIS REPORT FOR: //name// CC: FAM physician/PCP Waqar Jacome DATE OF SERVICE: 10/02/2018 INFECTIOUS DISEASE CONSULTATION ATTENDING PHYSICIAN: Waqar Jacome MD REASON FOR EVALUATION: Pneumonitis, complicated by respiratory failure and encephalopathy. HISTORY OF PRESENT ILLNESS: Chart reviewed, patient examined. This is an 82-year-old with known history of previous mitral valve replacement, has known vasculopathy, coronary artery disease, who presented to the Emergency Room with complaints of progressive severe weakness, had been on the floor, unable to get up at that point, he had not been complaining of dyspnea; however, the subsequent has progressively worsening requiring intubation, now on mechanical ventilatory support. Imaging suggested a diffuse patchy infiltrates, primarily right-sided, with mild cardiomegaly. Initial ABG, pO2 of 61 on 2 liters nasal cannula. Lactic acid of 2.6, peaked to 2.9. Discussion with the spouse. There was no history of previous pneumonitis. She is unaware of any fevers or chills or sweats. Did mention his appetite has been somewhat diminished due to concern about infectious etiology. Cultures were collected including blood, sputum, urine as well as urinary antigens, was empirically started on broad-spectrum therapy with piperacillin, tazobactam as well as vancomycin. At this point, he is nonresponsive. ALLERGIES: None known. MEDICATIONS: In addition to the antibiotics include enoxaparin, methylprednisolone, levalbuterol inhaler, diltiazem as needed, midazolam, is also on Genaro-Synephrine and fentanyl by continuous drip, Zosyn, aspirin, and vancomycin. PAST MEDICAL HISTORY: Has known atherosclerotic coronary artery disease, previous aortocoronary bypass grafting, bioprosthetic aortic valve. SOCIAL HISTORY: Available in chart. FAMILY HISTORY: Available in chart. REVIEW OF SYSTEMS: [place] [address] CONSULTATION Name: YOMAIRA YANCEY Room: [address] IN [facility]#: [id number] Admission: 09/29/18 Attend Phys: Waqar Jacome MD Discharge: Date of : 36 Report #: [id number] PHYSICAL EXAMINATION: GENERAL: Appears to be in [id number] distress. He is intubated, does open his eyes. There is no clear evidence of comprehension. He does spontaneously move his right upper extremity, although not noted in the left, have an ET and OG tube in place. HEENT: Normocephalic. NECK: Appears to be supple. VITAL SIGNS: Temperature 99. Most recent pulse 89, respirations 18, blood pressure is 86/52. SKIN: Warm, dry, no rashes. HEART: Regular. I do not appreciate a murmur. LUNGS: Scattered coarse breath sounds. ABDOMEN: Soft. There is no apparent tenderness, no peritoneal signs. GENITOURINARY AND RECTAL: Deferred. LABORATORY DATA: MRSA PCR is negative. Chest x-ray, bilateral perihilar interstitial infiltrates. Electrolytes: Sodium 144, potassium 4.3, chloride 110, bicarbonate is 24, anion gap of 10, BUN and creatinine 50 and 2.4. AST of 39, ALT of 124, albumin 1.8, total protein of 6.5. CBC: White count 19.6, H and H 11.9 and 36.6, platelets of 349. Urinalysis 6-15 white cells, 10-30 bacteria. Cultures in progress. V/Q scan showed low probability for PE. ASSESSMENT: Severe pneumonitis, complicated by respiratory failure requiring mechanical ventilatory support, also has evidence of septic shock. He is on pressor support as well as some moderate organ dysfunction. We will continue broad-spectrum antimicrobial therapy. Zosyn and vancomycin is a reasonable approach and see how he does clinically. At this point, continue maximal support, wean as allowed off the ventilator, did discussed with the patient's spouse. <ELECTRONICALLY SIGNED> By: David Shaver MD 10/03/18 1251 [id number] Shaver MD /nt
--- NOTE | 2018-10-03 17:43 | NUR ---
THIS GRAIN MILL PRODUCTS INSPECTOR ASSUMED CARE OF PT AFTER RECEIVING SHIFT REPORT. PT REMAINS DISORIENTATED ON A VENTILATOR AND SEDATED AT THIS TIME. PT IS PROGRESSING TOWARD GOALS TOLERATING TUBE FEEDINGS AT A DESIRED RATE OF 55ML/HR. NEOSYNEPHRINE AND CARDIZEM TITRATED DOWN UNTIL STOPPED, PT IS TOLERATING WELL MAP >65. PT WAS RESTLESS AT TIMES AND REQUIRED IVP OF VERSAD 3MG TO INCREASE O2 SAT, DECREASE HEART RATE, AND REDUCE AGITATION. GOAL WAS MET AFTER VERSAD WAS GIVEN AND VENT SETTING TITRATED PER RT PT RESTING COMFORTABLY. RESTRAINTS IN PLACE DO TO INCREASED AGITATION AT TIMES NO SKINBREAK DOWN NOTED, ASSESSED EVERY 2 HOURS NOTED. DECREASED URINE OUTPUT 450ML PER SHIFT FADY IN COLOR AND CLOUDE. ORAL CARE AND REPOSITIONING COMPLETED EVERY TWO HOURS. WAS PRESENT MAJORITY OF THE DAY. PT IS OVERALL PROGRESSING TOWARD GOALS.
--- NOTE | 2018-10-03 18:30 | NUR ---
CHARTING REVIEWED. AGREE WITH RESULTS.
[2018-10-04] VITALS (64 sets, daily range): BP systolic 101–206; BP diastolic 53–120
[2018-10-04 05:37] LABS: BE -0.7 mmol/L (-2 to +3); pH 7.376 (7.340-7.450)
[2018-10-04 05:39] LABS: PO2 49.4 mmHg (75.0-100.0)
--- NOTE | 2018-10-04 06:47 | NUR ---
PATIENT SEDATED ON VENTILATOR. ATTEMPTED TO WEAN FIO2 DOWN DURING SHIFT, PATIENT O2 SAT WILL NOT TOLERATE BELOW 60%. ABG RESULTS CALLED TO PULMONARY, ORDERS RECEIVED. ASSESSMENTS CHARTED. ADMINISTERED VERSED PUSHES 3 TIMES DURING SHIFT. FENTANYL STILL GOING AT 100. TUBE FEEDING STILL GOING AT GOAL OF 55. RESIDUAL MAX- 65 ML. BP STABLE, ADMINISTERED 1 DOSE OF METOPROLOL FOR HEART RATE. PATINET STILL OFF CARDIZEM AND NEOSYNEPHRINE. STILL DOES NOT TOLERATE STIMULATION. URINE OUTPUT IMPROVING.
[2018-10-04 08:38] LABS: HEMATOCRIT 32.8 % (42.0-52.0); HEMOGLOBIN 10.6 gm/dL (14.0-18.0); MCH 28.5 pg (26.0-34.0); MCHC 32.3 g/dL (28.0-37.0); MCV 88.3 fL (80.0-100.0); MPV 9.2 fl. (7.2-11.1); RBC 3.71 mil/uL (4.50-6.00); RDW-CV 14.6 % (10.5-14.5); WBC 17.9 thou/uL (4.0-11.0)
[2018-10-04 08:41] LABS: CALCIUM 7.8 mg/dL (8.5-10.1); CREATININE 1.9 mg/dL (0.6-1.3); POTASSIUM 4.2 mmol/L (3.5-5.1)
[2018-10-04 12:16] LABS: CALCIUM 8.2 mg/dL (8.5-10.1); POTASSIUM 4.3 mmol/L (3.5-5.1)
[2018-10-04 14:27] LABS: BE -1.5 mmol/L (-2 to +3); PO2 64.9 mmHg (75.0-100.0); pH 7.414 (7.340-7.450)
--- NOTE | 2018-10-04 18:49 | NUR ---
PT ON VENT SUPPORT, PEEP INCREASED TO 9, SEDATION CONTD WITH FENTANYL AT 100 MCG/HR. PT BECOMES TACHYCARDIC AND DESATS WHEN STIMULATED. EKG SHOWS SA. BP STABLE WITHOUT PRESSORS. TOLERATING TUBE FEEDS. Q2 TURNS FOR SKIN INTEGRITY.
[2018-10-05] VITALS (18 sets, daily range): BP systolic 93–176; BP diastolic 55–105
[2018-10-05 03:28] LABS: BE -2.4 mmol/L (-2 to +3); PCO2 40.3 mmHg (35.0-45.0); pH 7.368 (7.340-7.450)
[2018-10-05 03:32] LABS: PO2 137.7 mmHg (75.0-100.0)
[2018-10-05 04:16] LABS: HEMATOCRIT 37.2 % (42.0-52.0); MCH 28.4 pg (26.0-34.0); MCHC 32.2 g/dL (28.0-37.0); MCV 88.1 fL (80.0-100.0); RBC 4.22 mil/uL (4.50-6.00); RDW-CV 14.6 % (10.5-14.5); WBC 21.5 thou/uL (4.0-11.0)
[2018-10-05 04:37] LABS: ALBUMIN 1.6 g/dL (3.4-5.0); CALCIUM 7.9 mg/dL (8.5-10.1); CREATININE 1.7 mg/dL (0.6-1.3); POTASSIUM 4.6 mmol/L (3.5-5.1); TOTAL BILIRUBIN 1.5 mg/dL (<0.1-1.0); TOTAL PROTEIN 6.1 g/dL (6.4-8.2)
--- NOTE | 2018-10-05 04:48 | NUR ---
ASSUMED CARE AT 1910H, 0N VENT, FIO2 70% AND PT WAS AWAKE AND RESTLESS.PRN SEDATION GIVEN.FIO2 INCREASED TO 100%, PT HAD OCCASION OF DESATURATION WHEN AWAKE AND RESTLESS ESPECIALLY DURING TURNING.PT OPEN EYES TO PAIN AND LOCALIZED TO PAIN.CONTINUE MONITORING AND TOWARDS GOALS.
[2018-10-05 14:34] LABS: CALCIUM 7.9 mg/dL (8.5-10.1); CREATININE 1.8 mg/dL (0.6-1.3); POTASSIUM 4.3 mmol/L (3.5-5.1)
--- NOTE | 2018-10-05 19:21 | NUR ---
PATIENT REQUIRING INCREASE IN SEDATION. BP AND PULSE GREATLY INCREASED WITH AGGITATION.SPUTUM OBTAINED REMAINS AFEBRILE. SEE FLOW SHEET.
[2018-10-06] VITALS (66 sets, daily range): BP systolic 73–199; BP diastolic 44–121
[2018-10-06 05:19] LABS: HEMATOCRIT 37.8 % (42.0-52.0); MCH 28.1 pg (26.0-34.0); MCHC 31.9 g/dL (28.0-37.0); MCV 88.2 fL (80.0-100.0); MPV 10.5 fl. (7.2-11.1); RBC 4.28 mil/uL (4.50-6.00); RDW-CV 14.7 % (10.5-14.5); WBC 28.4 thou/uL (4.0-11.0)
--- NOTE | 2018-10-06 05:31 | NUR ---
MULTIPLE DOSES OF PRN SEDATION MED ADMINISTERED FOR INCREASED AGITATION PER VITALS AND PATIENT MOVING EXTREMITIES. DOES NOT TOLERATE TURNS/BATH. AFEBRILE. ONE EPISODE HR IN 170s THAT LASTED A FEW SECONDS. TF RUNNING AT GOAL WITH MINIMAL RESIDUALS. OTHERWISE UNEVENTFUL NIGHT.
[2018-10-06 05:58] LABS: BE 0.6 mmol/L (-2 to +3); PCO2 42.6 mmHg (35.0-45.0); PO2 69.2 mmHg (75.0-100.0); pH 7.397 (7.340-7.450)
[2018-10-06 06:23] LABS: ALBUMIN 1.6 g/dL (3.4-5.0); CALCIUM 7.9 mg/dL (8.5-10.1); CREATININE 1.9 mg/dL (0.6-1.3); POTASSIUM 4.9 mmol/L (3.5-5.1); TOTAL BILIRUBIN 1.3 mg/dL (<0.1-1.0); TOTAL PROTEIN 6.1 g/dL (6.4-8.2)
[2018-10-06 15:07] LABS: BE 5.6 mmol/L (-2 to +3); PCO2 41.7 mmHg (35.0-45.0); PO2 64.8 mmHg (75.0-100.0); pH 7.472 (7.340-7.450)
--- NOTE | 2018-10-06 17:35 | NUR ---
VSS.CASINO CAGE MANAGER IN PLACE WITH NO CHANGES.PT REMAINS ON VENT PER ORDERED SETTINGS.RIGHT JUGULAR PATENT WITH FENTANYL AND VERSED INFUSING PER TITRATION ORDERS.LEVOPHED ORDERED NEEDED FOR BLOOD PRESSURE SUPPORT-PT NOT CURRENTLY ON.OG TUBE SECURE AND PATENT @ 60 WITH TUBE FEEDINGS INFUSING PER ORDERS.NO APPARENT PAIN.FOLEYS SECURE AND PATENT WITH GOOD OUTPUT.ORAL CARE GIVEN.Q2 HOUR POSITION CHANGES WITH RELEASE OF RESTRAINTS COMPLETED.FALL PRECAUTIONS IN PLACE FOR PT SAFETY.WILL CONTINUE TO MONITOR FOR DURATION OF SHIFT.
[2018-10-07] VITALS (90 sets, daily range): BP systolic 67–166; BP diastolic 36–106
[2018-10-07 03:50] LABS: HEMATOCRIT 32.2 % (42.0-52.0); HEMOGLOBIN 10.3 gm/dL (14.0-18.0); MCH 28.2 pg (26.0-34.0); MCHC 32.1 g/dL (28.0-37.0); MCV 87.8 fL (80.0-100.0); MPV 10.7 fl. (7.2-11.1); RBC 3.67 mil/uL (4.50-6.00); RDW-CV 14.7 % (10.5-14.5)
[2018-10-07 04:07] LABS: ALBUMIN 1.3 g/dL (3.4-5.0); CALCIUM 7.3 mg/dL (8.5-10.1); CREATININE 1.9 mg/dL (0.6-1.3); MAGNESIUM 2.9 mg/dL (1.8-2.4); POTASSIUM 4.5 mmol/L (3.5-5.1); TOTAL PROTEIN 5.1 g/dL (6.4-8.2)
[2018-10-07 05:09] LABS: PCO2 38.9 mmHg (35.0-45.0); PO2 60.5 mmHg (75.0-100.0); pH 7.472 (7.340-7.450)
--- NOTE | 2018-10-07 06:45 | NUR ---
PATIENT STARTED ON LEVO FOR A FEW HOURS FOR DECREASED BP WHILE ON VERSED AND FENTANYL GTT, OFF LEVOPHED SINCE AROUND 0200 AND MAINTAINING MAP>60. OTHERWISE UNEVENTFUL NIGHT. Q2 TURNS FOR SKIN INTEGRITY.
--- NOTE | 2018-10-07 11:00 | NUR ---
SPOKE WITH IN ROOM. PT.REMAINS ON VENT. SHE SAID THE TOLD HER HE MAY BE ON THE VENTILATOR 2-4 MORE DAYS. SHE SAID HE IS NORMALLY INDEPENDENT AT HOME AND HOPES TO BE ABLE TO TAKE HIM HOME AT DISCHARGE. TOLD HER WE WOULD FOLLOW AND TALK AGAIN ABOUT DISCHARGE PLAN ONCE OFF VENT. SHE SAID NURSES AND ARE KEEPING HER VERY INFORMED.
--- NOTE | 2018-10-07 17:38 | NUR ---
VENT SETTINGS UNCHANGED, SEDATION INCREASED SINCE PT WAS TACHYPNEIC, FENTANYL AT 100 MCG/HR AND VERSED AT 6 MG/HR. LEVOPHED RESTARTED, TITRATED PER PROTOCOL VSS.PT HAD A BOWEL MOVEMENT,MODERATE AMOUNT. HIGH RESIDUALS IN THE TUBE FEEDING, LAST ONE 180 MLS, FEEDING HELD FOR 2 HRS. Q2 TURNS FOR SKIN INTEGRITY
--- NOTE | 2018-10-07 20:59 | NUR ---
INITAL ASSESMENT COMPLETED AT 1945. PT INTUBATED AND SEDATED ON VENTILATOR. PT RECIEVING IV LEVOPHED TO MAINTAIN MAP> 65. OG IN PLACE WITH TUBE FEEDING. PT ON FENTANYL AND VERSED INFUSION FOR SEDATION WHILE INTUBATED.
--- NOTE | 2018-10-07 22:28 | NUR ---
PT'S TUBE FEEDING RESIDUAL AT 1944 320. TUBE DEEFING PLACED ON HOLD TO PREVENT ASPERATION.
[2018-10-08] VITALS (62 sets, daily range): BP systolic 92–190; BP diastolic 43–86
[2018-10-08 04:34] LABS: HEMATOCRIT 34.8 % (42.0-52.0); HEMOGLOBIN 11.2 gm/dL (14.0-18.0); MCH 28.3 pg (26.0-34.0); MCHC 32.1 g/dL (28.0-37.0); MCV 88.1 fL (80.0-100.0); RBC 3.95 mil/uL (4.50-6.00); RDW-CV 14.7 % (10.5-14.5)
[2018-10-08 04:47] LABS: ALBUMIN 1.4 g/dL (3.4-5.0); CALCIUM 7.8 mg/dL (8.5-10.1); CREATININE 1.8 mg/dL (0.6-1.3); MAGNESIUM 2.9 mg/dL (1.8-2.4); POTASSIUM 4.9 mmol/L (3.5-5.1); TOTAL PROTEIN 5.7 g/dL (6.4-8.2)
[2018-10-08 05:54] LABS: BE -0.1 mmol/L (-2 to +3); PCO2 42.1 mmHg (35.0-45.0); PO2 98.7 mmHg (75.0-100.0)
--- NOTE | 2018-10-08 06:29 | NUR ---
ASSUMED PATIENT CARE SINCE 99. LEVOPHED AT 10MCG/MIN AND TOLERATING WELL WITH VERSED AND FENTANYL GTT. TF RESTARTED AT 0400. AFEBRILE. Q2 TURNS FOR SKIN INTEGRITY.
--- NOTE | 2018-10-08 19:29 | NUR ---
PT ON VENT, FIO2 TITRATED DOWN TO 50%, TOLERATING WELL. SEDATION WITH VERSED AT 6 MG/HR AND FENTANYL AT 100MCG/HR. LEVOPHED CONTD AT 10 MCG/HR. TUBE FEEDING CONTD AT 55 MLS/HR. CT ABD AND PELVIS DONE. Q2 TURNS AND ORAL CARE PROVIDED.
[2018-10-09] VITALS (73 sets, daily range): BP systolic 79–169; BP diastolic 38–109
[2018-10-09 05:26] LABS: HEMOGLOBIN 10.2 gm/dL (14.0-18.0); MCH 28.6 pg (26.0-34.0); MCHC 32.7 g/dL (28.0-37.0); MCV 87.4 fL (80.0-100.0); MPV 10.7 fl. (7.2-11.1); RBC 3.55 mil/uL (4.50-6.00); RDW-CV 14.3 % (10.5-14.5); WBC 25.2 thou/uL (4.0-11.0)
[2018-10-09 05:35] LABS: ALBUMIN 1.4 g/dL (3.4-5.0); CALCIUM 7.6 mg/dL (8.5-10.1); CREATININE 1.7 mg/dL (0.6-1.3); MAGNESIUM 3.1 mg/dL (1.8-2.4); POTASSIUM 5.3 mmol/L (3.5-5.1); TOTAL BILIRUBIN 0.6 mg/dL (<0.1-1.0); TOTAL PROTEIN 5.4 g/dL (6.4-8.2)
[2018-10-09 05:50] LABS: BE 3.2 mmol/L (-2 to +3); PCO2 42.6 mmHg (35.0-45.0); pH 7.433 (7.340-7.450)
--- NOTE | 2018-10-09 06:08 | NUR ---
LEVOPHED GTT TITRATED DOWN TO 8 MCG/MIN. TF HELD FOR PART OF THE NIGHT FOR HIGH RESIDUALS. SEDATIONS GTTS RUNNING AT SAME RATE, FIO2 ABLE TO GO DOWN TO 45% WITH SPO2 AROUND 91-92%. Q2 TURNS FOR SKIN INTEGRITY.
--- NOTE | 2018-10-09 18:20 | NUR ---
PT ON VENT, FI02 TITRATED TO 40% BUT SPO2 DOWN TO 84%, BACK TO 60% NOW. SEDATED WITH FENTANYL AT 100MCG/HR AND VERSED AT 6MG/HR. TOLERATING TUBE FEEDS. HAD A BM TODAY. LEVOPHED AT 5 MCG/MIN. Q2 TURNS AND ORAL CARE DONE.
[2018-10-10] VITALS (65 sets, daily range): BP systolic 81–205; BP diastolic 35–162
[2018-10-10 03:37] LABS: HEMATOCRIT 29.6 % (42.0-52.0); HEMOGLOBIN 9.6 gm/dL (14.0-18.0); MCH 28.5 pg (26.0-34.0); MCHC 32.4 g/dL (28.0-37.0); MPV 10.6 fl. (7.2-11.1); RBC 3.37 mil/uL (4.50-6.00); RDW-CV 14.7 % (10.5-14.5); WBC 22.8 thou/uL (4.0-11.0)
[2018-10-10 03:54] LABS: ALBUMIN 1.4 g/dL (3.4-5.0); CALCIUM 7.3 mg/dL (8.5-10.1); CREATININE 1.6 mg/dL (0.6-1.3); MAGNESIUM 2.9 mg/dL (1.8-2.4); POTASSIUM 5.2 mmol/L (3.5-5.1); TOTAL BILIRUBIN 0.6 mg/dL (<0.1-1.0); TOTAL PROTEIN 5.4 g/dL (6.4-8.2)
--- NOTE | 2018-10-10 04:52 | NUR ---
LEVO DOWN TO 5MCG/MIN. SPO2 OK THROUGH THE NIGHT, THIS AM STAYING AT HIGH 80s-LOW 90s WITH 60% FIO2. DECREASED SECRETION FROM ET TUBE, THICK AND GIBSON. BLOOD TINGED MUCUS WHEN DEEP SUCTIONING PT. AFEBRILE. Q2 TURNS FOR SKIN INTEGRITY.
[2018-10-10 05:27] LABS: BE 5.2 mmol/L (-2 to +3); PCO2 45.9 mmHg (35.0-45.0); PO2 91.2 mmHg (75.0-100.0); pH 7.435 (7.340-7.450)
--- NOTE | 2018-10-10 18:54 | NUR ---
VSS.CODING TECH IN PLACE WITH NO CHANGES.PT REMAINS ON VENTILATOR ON ORDERED SETTINGS.IJ PATENT WITH FENTANYL AND VERSED INFUSING PER TITRATION ORDERS.LOZANO SECURE AND PATENT.OG TUBE SECURE AND PATENT WITH TUBE FEED INFUSING PER GOAL.CENTRAL LINE DRESSING CHANGED.SEDATION VACATION COMPLETED THIS SHIFT-PT BECAME TACHYCARDIC AND TACHYPENIC SEDATION RESUMED.WILL CONTINUE TO MONITOR FOR DURATION OF SHIFT.
[2018-10-11] VITALS (47 sets, daily range): BP systolic 68–146; BP diastolic 37–88
[2018-10-11 03:55] LABS: HEMATOCRIT 29.2 % (42.0-52.0); HEMOGLOBIN 9.5 gm/dL (14.0-18.0); MCH 28.5 pg (26.0-34.0); MCHC 32.5 g/dL (28.0-37.0); MCV 87.5 fL (80.0-100.0); MPV 10.6 fl. (7.2-11.1); RBC 3.34 mil/uL (4.50-6.00); RDW-CV 14.6 % (10.5-14.5); WBC 21.5 thou/uL (4.0-11.0)
[2018-10-11 04:15] LABS: ALBUMIN 1.4 g/dL (3.4-5.0); CALCIUM 7.4 mg/dL (8.5-10.1); CREATININE 1.6 mg/dL (0.6-1.3); MAGNESIUM 2.8 mg/dL (1.8-2.4); POTASSIUM 4.8 mmol/L (3.5-5.1); TOTAL BILIRUBIN 0.5 mg/dL (<0.1-1.0); TOTAL PROTEIN 5.2 g/dL (6.4-8.2)
--- NOTE | 2018-10-11 05:24 | NUR ---
PT. NOT PROGRESSING TOWARDS GOALS. FI02 UP TO 60%, FROM 40%. VERSED/FENT GTT'S. WILL CONTINUE TO MONITOR.
--- NOTE | 2018-10-11 09:12 | NUR ---
O.T. WILL DISCHARGE PT. FROM O.T. [facility] DUE TO PT. BEING ON THE VENT AND NOT APPROPRIATE FOR O.T. SERVICES. HE WAS PLACED ON HOLD SINCE 10/01. PLEASE REORDER O.T. SERVICES WHEN PT. IS MEDICALLY STABLE.
--- NOTE | 2018-10-11 15:01 | NUR ---
PT H BEEN IN THE ICU SINCE 10/01/18. RECOMMEND RESUME ORDERS WHEN APPROPRIATE FOR P.T. PATIENT WILL BED DC'ED AT THIS TIME. KATHI RAYMUNDO,MPT
--- NOTE | 2018-10-11 15:15 | NUR ---
not at bedside this AM. Met with her at 1325 hrs. She has no questions or concerns at this time. She has support from three children who live in the [facility] area; a daughter is closest and visited at hospital yesterday. says she just sits and watches the patient all day. She does take emotional breaks and states she is eating and goes home each pm. There is no change in patient status today; He remains sedated and on the vent.
--- NOTE | 2018-10-11 18:09 | NUR ---
This gag writer assumed care for pt at 0700. Pt is progressing toward goals with assistance from ventilator and medication. Physician ordered increased sedation to help with respiratory effort. FIO2 decreased from 60 to 45 and then to 55 where it currently remains. Fentanyl increased from 100mcg to 150mcg. Versad was ordered to increase from 5mg to 10mg but wasnt needed after the fentanyl was maxed at 150mcg . Pt B/P was hypotensive, levaphed resumed started at 6mcg titrated down to 2mcg pt did not tolerate well titrated up to 3mcg and currently running at 3mcg. Oral care and respositing complete every 2 hours in room majority of day.
[2018-10-12] VITALS (55 sets, daily range): BP systolic 83–172; BP diastolic 32–102
[2018-10-12 05:05] LABS: HEMATOCRIT 29.2 % (42.0-52.0); HEMOGLOBIN 9.4 gm/dL (14.0-18.0); MCH 28.4 pg (26.0-34.0); MCHC 32.3 g/dL (28.0-37.0); RBC 3.32 mil/uL (4.50-6.00); RDW-CV 14.7 % (10.5-14.5); WBC 22.7 thou/uL (4.0-11.0)
[2018-10-12 05:25] LABS: ALBUMIN 1.4 g/dL (3.4-5.0); CALCIUM 7.6 mg/dL (8.5-10.1); CREATININE 1.6 mg/dL (0.6-1.3); MAGNESIUM 2.8 mg/dL (1.8-2.4); POTASSIUM 4.8 mmol/L (3.5-5.1); TOTAL BILIRUBIN 0.5 mg/dL (<0.1-1.0); TOTAL PROTEIN 5.5 g/dL (6.4-8.2)
[2018-10-12 05:40] LABS: BE 2.6 mmol/L (-2 to +3); PCO2 45.2 mmHg (35.0-45.0); PO2 91.8 mmHg (75.0-100.0); pH 7.406 (7.340-7.450)
--- NOTE | 2018-10-12 07:26 | NUR ---
Pt remains sedated and nonresponsive; on ventilator. Levophed gtt titrated from 4 to 5 mcg for MAP < 60 and SBP < 90, then back down to 4 mcg. Remains on midazolam gtt and fentanyl gtt for sedation. TF at 55 mls/hr. Residuals at MN and 0400 195 & 198, respectively. Will continue to monitor.
--- NOTE | 2018-10-12 10:38 | NUR ---
0700 ASSUMED CARE OF PATIENT. ATTEMPTING TO WEAN VERSED AND FENTANYL DOWN. PATIENT BECOMES AGITATED EASILY: MOVING ARMS, SHRUGGING SHOULDERS, MOVING UPPER BODY, BP AND HR ELEVATES. OFF LEVO AT THIS TIME. INCREASING RESIDUALS. DR. DOW AWARE. DR. HAIRSTON SPOKE WITH , POTENTIAL TRACH/PEG NEXT WEEK IF NOT EXTUBATED. ATTEMPTING TO WEAN FIO2 DOWN AND WILL NEED TO WEAN PEEP DOWN PRIOR TO TTT. PLAN FOR ANOTHER SEDATION VACATION LATER TODAY. SLIME LASIX GIVEN ORDERED.
--- NOTE | 2018-10-12 12:45 | NUR ---
REPORT GIVEN TO DARY. PEEP DECREASED TO 10.
--- NOTE | 2018-10-12 13:36 | NUR ---
1300 ASSUMED CARE OF PATIENT FROM PEDRO. SATS WILL DROP LOW 83%/ RT NOTIFIED AND BREATHING TREATMENT TO BE GIVEN
--- NOTE | 2018-10-12 13:37 | NUR ---
ORDERS RECEIVED FROM DR HAIRSTON TO INCREASE PEEP ALSO FIO2 IF NEEDED
--- NOTE | 2018-10-12 17:38 | NUR ---
MINIMAL PROGRESSION TOWRDS GOALS. OFF OF LEVOPHED DRIP. LESS VERSED SEDATION BUT UNABLE TO WEAN FIO2 OR PEEP. TOLERATING TUBE FEEDING AND HAS HAD BOWEL MOVEMENT. STILL HAS OCCASIONAL BURST OF SVT.OTHERWISE RHYTHM IS IRREGULAR AND MOSTLY MAT. RESPONDS TO PAIN BUT NOT TO VERBAL STIMULI. SPOUSE HAS VISITED.
[2018-10-13] VITALS (37 sets, daily range): BP systolic 80–204; BP diastolic 11–154
[2018-10-13 04:28] LABS: HEMATOCRIT 30.4 % (42.0-52.0); HEMOGLOBIN 9.8 gm/dL (14.0-18.0); MCH 28.3 pg (26.0-34.0); MCHC 32.3 g/dL (28.0-37.0); MCV 87.6 fL (80.0-100.0); RBC 3.47 mil/uL (4.50-6.00); RDW-CV 14.9 % (10.5-14.5); WBC 24.3 thou/uL (4.0-11.0)
[2018-10-13 05:03] LABS: ALBUMIN 1.5 g/dL (3.4-5.0); CALCIUM 7.8 mg/dL (8.5-10.1); CREATININE 1.5 mg/dL (0.6-1.3); MAGNESIUM 2.8 mg/dL (1.8-2.4); POTASSIUM 4.8 mmol/L (3.5-5.1); TOTAL BILIRUBIN 0.5 mg/dL (<0.1-1.0); TOTAL PROTEIN 5.9 g/dL (6.4-8.2)
[2018-10-13 05:28] LABS: BE 4.5 mmol/L (-2 to +3); PCO2 48.5 mmHg (35.0-45.0); PO2 79.8 mmHg (75.0-100.0); pH 7.409 (7.340-7.450)
--- NOTE | 2018-10-13 07:36 | NUR ---
Pt remains on fentanyl and midazolam gtts. BP stable, remains off levophed gtt. Pt shrugs shoulders and bends arms at elbows at times, but no purposeful movements noted. Also no cough reflex. Breath snds coarse. Redness to [place] area improved since yesterday. Will continue to monitor.
--- NOTE | 2018-10-13 09:51 | NUR ---
6972 ASSUMED CARE OF PATIENT. PLEASE SEE DOCUMENTED ASSESSMENT. INCONTINENT OF LARGE AMOUNT OF STOOL.
--- NOTE | 2018-10-13 09:51 | NUR ---
KUB DONE SEE SEDATION VACATION CHARTING. PLAN IS FOR CT OF HEAD AND CHEST TODAY
--- NOTE | 2018-10-13 12:52 | NUR ---
[address] PER BED WITH RT AND TRANSPORTER.
--- NOTE | 2018-10-13 14:28 | NUR ---
CHEST CT RESULTS CALLED TO DR ALEGRE
--- NOTE | 2018-10-13 15:07 | NUR ---
DR HAIRSTON CALLED TO CHECK ON PATIENT AND UPDATED ON PATIENT STATUS
--- NOTE | 2018-10-13 17:08 | NUR ---
MINIMAL PROGRESSION TOWARDS GOALS. REMAINS ON VENT AT 50%FIO2 AND 11 CM PEEP AND WILL STILL SOMETIMES HAVE SATS OF 88%. ABLE TO COMPLETE CT OF HEAD AND CHEST. AT GOAL ON NUTRITION. SEVERAL LARGE STOOLS TODAY. KUB COMPLETED. REMAINS OFF OF PRESSORS. FAMILY HAS VISITED.
[2018-10-14] VITALS (76 sets, daily range): BP systolic 58–196; BP diastolic 25–169
[2018-10-14 05:22] LABS: BE 5.6 mmol/L (-2 to +3); PCO2 47.1 mmHg (35.0-45.0); PO2 78.1 mmHg (75.0-100.0); pH 7.431 (7.340-7.450)
[2018-10-14 05:36] LABS: HEMATOCRIT 25.5 % (42.0-52.0); HEMOGLOBIN 8.1 gm/dL (14.0-18.0); MCH 28.1 pg (26.0-34.0); MCHC 31.9 g/dL (28.0-37.0); MCV 88.2 fL (80.0-100.0); RBC 2.9 mil/uL (4.50-6.00); WBC 17.7 thou/uL (4.0-11.0)
[2018-10-14 06:00] LABS: CALCIUM 7.5 mg/dL (8.5-10.1); CREATININE 1.4 mg/dL (0.6-1.3); MAGNESIUM 2.7 mg/dL (1.8-2.4); POTASSIUM 4.3 mmol/L (3.5-5.1)
--- NOTE | 2018-10-14 06:25 | NUR ---
Pt had sedation vacation for 1 hr & 7 min (from 2036 to 2143 last pm). BP 98/54 at start with HR 106 and RR 17; at end BP 163/93, HR 120, and RR 23. Sedation resumed at previous rates (Fentanyl gtt @ 150 mcg/hr, midazolam gtt @ 3 mg/hr). Still no cough reflex & no purposeful movement/not following commands. Some gross motor movement to extremities, particularly BUE. Peak pressures tend to run much higher (40s to low 50s) when pt turned to L side. Edema to ALICE (1+) and BLE (2+). Higher TF residuals this shift, but improved some following large loose BM. TF rate remains at goal of 55 ml/hr. Last residual at 0400 was 235 mls. Will continue to monitor.
[2018-10-14 16:23] LABS: HEMATOCRIT 24.5 % (42.0-52.0); MCH 28.6 pg (26.0-34.0); MCHC 32.5 g/dL (28.0-37.0); MPV 10.2 fl. (7.2-11.1); NUCLEATED RBCS 0 /100WBC; PLATELET COUNT* 231 thou/uL (150-400); RBC 2.78 mil/uL (4.50-6.00); RDW-CV 14.7 % (10.5-14.5); WBC 15.1 thou/uL (4.0-11.0)
[2018-10-14 16:35] LABS: CALCIUM 7.5 mg/dL (8.5-10.1); CREATININE 1.4 mg/dL (0.6-1.3); POTASSIUM 4.5 mmol/L (3.5-5.1)
[2018-10-14 17:04] LABS: ABSOLUTE LYMPHOCYTES 0.6 thou/uL (0.8-5.3); ABSOLUTE MONOCYTES 0.5 thou/uL (0.0-1.2)
[2018-10-14 17:06] LABS: ANISOCYTOSIS Occasional; LARGE PLATELETS OCCASIONAL; PLATELET ESTIMATE ADEQUATE; POLYCHROMASIA Occasional
[2018-10-14 17:07] LABS: ROULEAUX OCCASIONAL
--- NOTE | 2018-10-14 18:20 | NUR ---
THIS MANAGER SUPPORT ASSUMED PT CARE AT 0700. SLOW TO PROGRESS TOWARD GOALS. NG TUBE WAS REMOVED AND PEG TUBE WAS PLACED TODAY. PEG TUBE PATENT AND FLUSHES WELL CAN BE USED FOR MEDICATION ADMINISTRATION TODAY AND RESUME TUBE FEEDING TOMORROW IN THE AM. PT HAD PORTABLE CHEST X-RAY AT 1715 DUE TO INCONSISTENT VENT SETTINGS. NO ABNORMAL FINDINGS ON X-RAY VENT SETTING AJUSTED ACCORDINGLY SEE DOCUMENTATION. AND SON IN ROOM MAJORITY OF THE DAY.
[2018-10-15] VITALS (37 sets, daily range): BP systolic 76–177; BP diastolic 38–97
[2018-10-15 04:04] LABS: HEMATOCRIT 28.9 % (42.0-52.0); HEMOGLOBIN 9.2 gm/dL (14.0-18.0); MCH 27.9 pg (26.0-34.0); MCHC 31.8 g/dL (28.0-37.0); MCV 87.9 fL (80.0-100.0); MPV 10.1 fl. (7.2-11.1); RBC 3.29 mil/uL (4.50-6.00); RDW-CV 14.8 % (10.5-14.5); WBC 19.6 thou/uL (4.0-11.0)
[2018-10-15 04:14] LABS: CREATININE 1.4 mg/dL (0.6-1.3); MAGNESIUM 2.8 mg/dL (1.8-2.4); POTASSIUM 4.4 mmol/L (3.5-5.1)
[2018-10-15 06:17] LABS: BE 2.6 mmol/L (-2 to +3); PCO2 44.8 mmHg (35.0-45.0); PO2 60.9 mmHg (75.0-100.0)
--- NOTE | 2018-10-15 06:55 | NUR ---
Pt's BP labile; requiring frequent re-checks and changing limbs to get reading. SBP ranging from 160s to 70s. BP 70s/40s on both arms just after 0100; sedation vacation started at 0118. BP gradually rigoberto to 143/96 by 0233, and sedation resumed with fentanyl at 100 mcg instead of 150. However, pt's BP rigoberto to 160s/90s, so fentanyl now back to 150 mcg/hr. O2 sat per ABG 89; Dr. Mcgrath informed and ordered FiO2 increase to 50%. Large dark loose stool this am; sample sent for occult blood. Will continue to monitor.
--- NOTE | 2018-10-15 09:21 | NUR ---
1949 ASSUMED CARE OF PATIENT. SEE DOCUMENTED ASSESSMENT. PT INCONTINENT OF LARGE AMOUNT OF STOOL.PT DID REACH LEFT HAND TOWARDS ETT.
[2018-10-16] VITALS (32 sets, daily range): BP systolic 65–156; BP diastolic 35–108
[2018-10-16 04:09] LABS: HEMATOCRIT 24.8 % (42.0-52.0); HEMOGLOBIN 7.9 gm/dL (14.0-18.0); MCV 87.7 fL (80.0-100.0); MPV 9.4 fl. (7.2-11.1); RBC 2.83 mil/uL (4.50-6.00); WBC 17.5 thou/uL (4.0-11.0)
[2018-10-16 04:23] LABS: BE 3.9 mmol/L (-2 to +3); PCO2 43.1 mmHg (35.0-45.0); PO2 94.3 mmHg (75.0-100.0); pH 7.438 (7.340-7.450)
[2018-10-16 04:26] LABS: ALBUMIN 1.4 g/dL (3.4-5.0); CALCIUM 7.5 mg/dL (8.5-10.1); CREATININE 1.4 mg/dL (0.6-1.3); MAGNESIUM 2.9 mg/dL (1.8-2.4); POTASSIUM 4.6 mmol/L (3.5-5.1); TOTAL BILIRUBIN 0.5 mg/dL (<0.1-1.0); TOTAL PROTEIN 5.3 g/dL (6.4-8.2)
--- NOTE | 2018-10-16 07:00 | NUR ---
VSS. Remains on Fentanyl and midazolam gtts for sedation. Pt reacts to touch with gross movements of upper extremities. Some movement of BLE noted at times. Still not following commands or opening eyes. No BM overnight. High TF residuals (460 mls) at 2044; TF held until 429, then resumed at 20 ml/hr. Will continue to monitor.
--- NOTE | 2018-10-16 12:36 | OP ---
[address] [address] OPERATIVE REPORT Name: YOMAIRA YANCEY Room: [address] IN M.R.#: [id number] Admission: 09/29/18 Attend Phys: Waqar Jacome MD Discharge: Date of : 37 Report #: [id number] THIS REPORT FOR: //name// CC: [facility] physician/PCP Waqar Jacome DATE OF SERVICE: 10/16/2018 FLEXIBLE BRONCHOSCOPY INDICATIONS: Bronchoscopy, suspicion of CT of tracheal injury or soft tissue injury. DESCRIPTION OF PROCEDURE: Before procedure, patient received 2 of Versed, 50 of fentanyl for better sedation as he had difficulty with the ventilator. A bronchoscope was withdrawn 2 cm. After that, the bronchoscope was advanced. The tracheal mucosa examined. There are no tracheal ulcers or injuries. Then, examination of the right side including right mainstem, right upper lobe, right middle lobe and right lower lobe, grossly appeared normal. No significant secretion. Examination of the left side including left mainstem, lingula and left lower lobe had a white minimal secretions. Left upper division with the lingula appeared grossly normal. Left lower lobe normal. Left lower lobe washing was done. Samples to be sent for cultures, cytology, Gram stain, AFB and fungal culture. The patient tolerated the procedure well. <ELECTRONICALLY SIGNED> By: Nav Andrade MD 10/16/18 1236 [id number] [id number] MD maddie Duggan
--- NOTE | 2018-10-16 18:30 | NUR ---
VSS.SAFETY ATTENDANT IN PLACE WITH NO CHANGES.PT REMAINS ON VENTILATOR PER ORDERED SETTINGS.RIGHT IJ SECURE AND PATENT WITH PROPOFOL AND FENTANYL INFUSING PER TITRATION ORDERS.PEG TUBE SECURE AND PATENT WITH JEVITY 1.5 INFUSING @ 35.FREE WATER BOLUS GIVEN PER ORDERS.LOZANO SECURE AND PATENT.CHEST TUBE PLACED IN RIGHT MEDIASTINAL @ BEDSIDE.BRONCHOSCOPY COMPLETED TODAY @ BEDSIDE-CULTURES COLLECTED.WILL CONTINUE TO MONITOR FOR DURATION OF SHIFT.
[2018-10-17] VITALS (40 sets, daily range): BP systolic 63–207; BP diastolic 34–145
[2018-10-17 04:42] LABS: HEMATOCRIT 26.5 % (42.0-52.0); HEMOGLOBIN 8.7 gm/dL (14.0-18.0); MCH 28.7 pg (26.0-34.0); MCHC 32.8 g/dL (28.0-37.0); MCV 87.5 fL (80.0-100.0); RBC 3.03 mil/uL (4.50-6.00)
[2018-10-17 04:59] LABS: ALBUMIN 1.7 g/dL (3.4-5.0); CALCIUM 7.7 mg/dL (8.5-10.1); CREATININE 1.4 mg/dL (0.6-1.3); MAGNESIUM 2.8 mg/dL (1.8-2.4); POTASSIUM 4.4 mmol/L (3.5-5.1); TOTAL BILIRUBIN 0.6 mg/dL (<0.1-1.0); TOTAL PROTEIN 6.1 g/dL (6.4-8.2)
[2018-10-17 06:23] LABS: BE 5.4 mmol/L (-2 to +3); PCO2 42.9 mmHg (35.0-45.0); PO2 74.9 mmHg (75.0-100.0); pH 7.459 (7.340-7.450)
--- NOTE | 2018-10-17 06:28 | NUR ---
VITALS STABLE, AFEBRILE. A COUPLE OF EPISODES OF HR IN 160s, VERY BRIEF. UOP 1000CC, YELLOW WITH SEDIMENTS. NO BM THIS SHIFT. UNEVENTFUL NIGHT, Q2 TURNS FOR SKIN INTEGRITY.
--- NOTE | 2018-10-17 09:45 | NUR ---
CATH KEVIN X2 IN WHITE AND BLUE PORT. BOTH NOW FLUSH AND DRAW BACK AFTER 30 MINUTES OF INSTILLATION.
--- NOTE | 2018-10-17 15:59 | NUR ---
CALL AND FAX TO [employer] M[employer]INE AT [facility] 1030 HRS FOR FACILITY TO FACILITY TRANSFER. UNABLE TO ACCEPT AT THIS TIME. CALL TO TRIAGE IMMEDIATELY AFTERWARDS AND FAXED REQUESTED INFORMATION TO TRIAGE LINE AT AND FAX . FOLLOW-UP CALL AT 1400 HRS; NOTIFIED THEY WILL NOT ACCEPT PATIENT, STATING HE IS TOO UNSTABLE AND HIGH RISK. NOTIFIED DR. DOW OF DECISION. ALSO MET WITH IN ROOM. SHE REQUESTS CONTACT WITH [facility]. CALL PLACED TO [facility] SHORTLY AFTER 1400 HRS AND FAXED REQUESTED INFORMATION. WAITING FOR DECISION IF THEY WILL ACCEPT PATIENT. ALSO PLACED CALL-BACK TO [facility] TO SEE IF THEY CAN NOW RECONSIDER THE REQUEST FOR PATIENT TRANSFER. GOAL: TRANSFER TO HIGHER LEVEL OF CARE TODAY IF POSSIBLE. BOTH THE ATTENDING AND PULM DOCTORS AWARE OF TRANSFER STATUS. UPDATED RN ASSIGNED TO PATIENT
--- NOTE | 2018-10-17 17:34 | NUR ---
PATIENT ACCEPTED TO [facility] BED [address] JENSEN. REPORT CALLED TO ERENDIRA ALVA. UPDATED ON BED ASSIGNMENT. [facility] ARRIVED AND UPDATED, PATIENT TRANSFERED BY AMBULANCE AT THIS TIME. VITALS STABLE UPON TRANSFER. ALL BELONGINGS SENT HOME WITH .
--- NOTE | 2018-10-18 17:06 | PATH ---
[address] [address] PATHOLOGY RPT PROCEDURE Name: YOMAIRA YANCEY Room: [address] IN [facility]#: [id number] Admission: 09/29/18 Date of : 37 Discharge: 10/17/18 Report #: [id number] Path Case #: [id number] Note [facility] Accession Number: [id number] TESTS RESULT FLAG UNITS REF RANGE LAB Clinician Provided Cytology Information No. of containers..01 Other (Miscellaneous) Source: LLL BRONCH WASHING DIAGNOSIS: 02 LLL BRONCH WASHING NEGATIVE FOR MALIGNANT CELLS. ABUNDANT PULMONARY MACROPHAGES, AND NEUTROPHILS AND FEW BRONCHIAL EPITHELIAL CELLS AND SQUAMOUS CELLS. Signed out by: 02 Bc Ferreira MD, Pathologist NPI- [id number] Performed by: Marisol Rosen, Petroleum Engineering Professor ([facility]) Gross description: 01 8ML, COLORLESS, CLOUDY /LCS FLAG LEGEND: L-Low Normal,H-High Normal,LL-Alert Low,HH-Alert High <-Panic Low,>-Panic High,A-Abnormal,AA-Critical Abnormal Performed at: [address] [place] [address] Axel Barba MD, [address] [place] [address] [facility], [place] [address] Bc Ferreira MD, Specimen Comment: A courtesy copy of this report has been sent to Specimen Comment: [phone], . Specimen Comment: Report sent to / DR ROSADO Specimen Comment: A duplicate report has been generated due to demographic updates. Performed at: [address], [place], [place] [id number] MD Axel Barba MD Phone: [phone]
--- NOTE | 2018-10-19 16:06 | PROC ---
[address] [address] PROCEDURE REPORT Name: YOMAIRA YANCEY Room: [address] IN M.R.#: [id number] Admission: 09/29/18 Attend Phys: Waqar Jacome MD Discharge: 10/17/18 Date of : 37 Report #: [id number] THIS REPORT FOR: //name// CC: [facility] physician/PCP Waqar Krause REFERRING DOCTOR: Dr. Waqar Jacome and Lia Krause. PROCEDURE PERFORMED: Esophagogastroduodenoscopy with gastrostomy tube placement. SEDATION USED: None. SPECIMEN RETRIEVED: None. INDICATIONS: The patient is an 83-year-old white male who currently on the ventilator and is going to need to have tracheostomy and gastrostomy tube placement because he has not been able to be weaned from the same. We were asked to see him today because of problems with worsening anemia with hemoglobin dropped down to 8 without any obvious evidence for GI blood loss. He is currently on the ventilator and unresponsive. Please see my GI consultation for further details. PHYSICAL EXAMINATION: GENERAL: Revealed an 83-year-old gentleman who is on the ventilator. CARDIOPULMONARY: Revealed regular rate and rhythm. LUNGS: Reveal diffuse rhonchi. ABDOMEN: Soft and not tender. No rebound or guarding noted. DESCRIPTION OF PROCEDURE: Informed consent was obtained from the patient's including the nature, risks, benefits and alternatives described. The patient was kept in the ICU and sedation would not even necessary for the patient as he is already currently on sedation. The patient's OG tube was removed and so was all the tube feedings that was noted within the stomach before proceeding with the study. Once this was achieved, the Olympus video upper scope was advanced under direct vision into the esophagus, which revealed some mild reflux esophagitis at grade B/D. This was likely related to the NG tube. There was also some mild NG tube related trauma and mild gastritis, but no blood noted within the stomach. The pylorus widely patent revealing a normal duodenal bulb and distal duodenum. Scope was withdrawn. Retroflex examination showed normal appearing cardia and fundus. Since there was no evidence for any active bleeding and there was no obvious contraindications to proceeding with the same, I then proceeded with endoscopic placement [place] [address] PROCEDURE REPORT Name: YOMAIRA YANCEY Room: [address] IN ..#: [id number] Admission: 09/29/18 Attend Phys: Waqar Jacome MD Discharge: 10/17/18 Date of : 37 Report #: [id number] Site was selected in the mid portion of the abdomen along the linea alba. The site was then subsequently prepped and draped in sterile fashion. Local anesthesia was obtained with 1% lidocaine. Once this was achieved, the needle to anesthetize the skin, it was then advanced slowly with gentle suction on the tube to ensure that we would not have any bowel interposing between us and the stomach. This was not noted. Once this was achieved, small incision was made on the outside of the skin after which the tissue was tweezed apart. Once this was achieved, trocar with overlying cannula was then advanced through the skin, subcutaneous tissue directly through the gastric wall under endoscopic visualization. The catheter was grasped with a snare after which the trocar was removed. Guidewire was then advanced through the cannula and then grasped with the snare. Once this was achieved, scope was withdrawn and a 24-[place] traction pull PEG was then pulled into position at 3 cm johnnie using the wire. It was then confirmed endoscopically. ProVation system was not working at that time, so there were no endoscopic images from today's procedure. Outside bumper was placed as well as clamp and then adapter to the end. I then placed some antibiotic ointment underneath the bumper and then placed some dressings over the same. Abdominal dressing was then placed over the site. The patient tolerated the procedure well. There were no complications notable. IMPRESSION: 1. Mild erosive esophagitis, grade B/D. 2. Mild erosive gastritis, likely related to stress. 3. Otherwise, normal upper endoscopy. 4. Successful placement of a 24-[place] traction pull PEG at 3 cm johnnie. RECOMMENDATIONS: 1. We will discontinue the patient's famotidine and begin him on some Protonix 40 mg once daily through his gastrostomy tube. 2. Okay to use the tube today for any medications with water. 3. Okay to begin the patient on tube feedings as previously directed and then because of his high residuals previously noted, we will also begin him on Reglan 10 mg every 4 hours while on feedings and continue to check residuals. 4. I discussed all these endoscopic findings and the fact that we were able to put a gastrostomy tube in the patient's abdomen or in the patient's stomach with his and she was pleased with the same. <ELECTRONICALLY SIGNED> By: Austin Charles DO 10/19/18 1606 [id number] 1003Gregory DO Melvin /nt
--- NOTE | 2018-10-19 16:06 | CON ---
[address] [address] CONSULTATION Name: YOMAIRA YANCEY Room: [address] IN M.R.#: [id number] Admission: 09/29/18 Attend Phys: Waqar Jacome MD Discharge: 10/17/18 Date of : 37 Report #: [id number] THIS REPORT FOR: //name// CC: [facility] physician/PCP Waqar Krause MD DATE OF SERVICE: 10/14/2018 REFERRING PHYSICIAN: Lia Krause MD REASON FOR CONSULTATION: Acute anemia. IMPRESSION: 1. Worsening anemia of uncertain etiology without obvious evidence of gastrointestinal blood loss -- evaluate for occult blood loss. 2. Respiratory failure, requiring high FiO2 and high PEEP with likely need for tracheostomy and PEG tube placement. RECOMMENDATIONS: 1. At the present time, there do not appear to be any obvious evidence for GI bleeding, but given the fact that his hemoglobin has dropped, I think it is reasonable for us to proceed with an upper endoscopy today at the bedside. 2. If I do not find the obvious evidence for the same and there does not appear to be any obvious contraindications to the same, we will also proceed with gastrostomy tube placement. This will be done in anticipation of the patient is also going to need a tracheostomy for his respiratory failure since he is about 12 days on the ventilator at this time. 3. I have discussed his plans with the patient's as well and she is agreeable to the same. HISTORY OF PRESENT ILLNESS: The patient is an 83-year-old white male who has been in the hospital since 09/29 with progressive respiratory failure. He has been on the ventilator for a number of days and had been unable to wean the patient from his high PEEP pressures and FiO2 of 50%. He has become progressively anemic without evidence for any GI blood loss. He has been receiving tube feedings through an OG tube and has had some high residuals. There has not been any history of any melena or hematochezia. We talked with his , there is no history of any problems related to his upper or lower GI tract. She does not think he has ever had any studies of the same. There has not been any history that he is on any medications, which could cause issues with the stomach including nonsteroidals. He has not been on any medications at home and does not follow very regularly by primary care provider. He is currently on the ventilator and sedated. ALLERGIES: [place] [address] CONSULTATION Name: YOMAIRA YANCEY Room: [address] IN [facility]#: [id number] Admission: 09/29/18 Attend Phys: Waqar Jacome MD Discharge: 10/17/18 Date of : 37 Report #: [id number] MEDICATIONS: At home are none. PAST MEDICAL HISTORY: Remarkable for heart valve surgery, previous bypass surgery. SOCIAL HISTORY: The patient is , does not smoke or drink. FAMILY HISTORY: Negative for GI malignancy. PHYSICAL EXAMINATION: GENERAL: Revealed an 83-year-old white male, who is currently on the ventilator. CARDIOPULMONARY: Revealed a regular rate and rhythm. LUNGS: With diffuse rhonchi. ABDOMEN: Soft, not tender. No rebound or guarding noted. LABORATORY DATA: From today revealed a white count of 15.1, hemoglobin 8.0, platelet count 231,000, MCV is 88 and RDW is 14.7. On admission, the patient's hemoglobin was 14.3 with normocytic indices and elevated white count. His sodium 143, potassium 4.5, chloride 106, bicarbonate is 32, his BUN is 64, creatinine 1.4, GFR of 49. His most recent liver test is from 10/13, which revealed a bilirubin of 0.5, alkaline phosphatase of 108, AST is 76 and an ALT of 239. He had a CT scan of the abdomen and pelvis performed on 10/08 for elevated liver function tests and revealed no abnormalities. He has some diverticulosis in the sigmoid colon without diverticulitis. No other abnormalities noted. DISCUSSION: At the present time, it appears to be reasonable for the patient to undergo endoscopic evaluation of upper GI tract. We will proceed with upper endoscopy today with his 's consent and if possible, proceed with PEG tube placement as well today. <ELECTRONICALLY SIGNED> By: Austin Charles DO 10/19/18 1606 [id number] Charles DO /nt
== END 2018-10-17 17:30 | disposition short-term general hospital (02) | DRG 870 ==
LOC: M.ERS 15:17 → M.ICU 17:04 → M.TBA-ER 17:04 → M.2W 17:04 → M.ICU 10-01 10:37
PROVIDERS: Emergency Medicine; Family Medicine; Internal Medicine; Internal Medicine Gastroenterology; Internal Medicine Pulmonary Disease; ADMIT Internal Medicine
PROC: B548ZZA Ultrasonography of Superior Vena Cava, Guidance (ICD-10-PCS; 2018-10-01)
PROC: 02HV33Z Insertion of Infusion Device into Superior Vena Cava, Percutaneous Approach (ICD-10-PCS; 2018-10-01)
PROC: 0BH17EZ Insertion of Endotracheal Airway into Trachea, Via Natural or Artificial Opening (ICD-10-PCS; 2018-10-01)
PROC: 5A1955Z Respiratory Ventilation, Greater than 96 Consecutive Hours (ICD-10-PCS; 2018-10-01)
PROC: 0DH68UZ Insertion of Feeding Device into Stomach, Via Natural or Artificial Opening Endoscopic (ICD-10-PCS; principal; 2018-10-14)
PROC: 0BJ08ZZ Inspection of Tracheobronchial Tree, Via Natural or Artificial Opening Endoscopic (ICD-10-PCS; 2018-10-16)
PROC: 0W9930Z Drainage of Right Pleural Cavity with Drainage Device, Percutaneous Approach (ICD-10-PCS; 2018-10-16)
DX: A41.9 Sepsis, unspecified organism (principal); G92 Toxic encephalopathy; I50.33 Acute on chronic diastolic (congestive) heart failure; R65.21 Severe sepsis with septic shock; J96.21 Acute and chronic respiratory failure with hypoxia; J15.9 Unspecified bacterial pneumonia; T79.7XXA Traumatic subcutaneous emphysema, initial encounter; I47.1 Supraventricular tachycardia; N17.9 Acute kidney failure, unspecified; J93.9 Pneumothorax, unspecified; K22.10 Ulcer of esophagus without bleeding; E87.0 Hyperosmolality and hypernatremia; I38 Endocarditis, valve unspecified; I13.0 Hypertensive heart and chronic kidney disease with heart failure and stage 1 through stage 4 chronic kidney disease, or unspecified chronic kidney disease; I25.10 Atherosclerotic heart disease of native coronary artery without angina pectoris; E78.5 Hyperlipidemia, unspecified; K29.70 Gastritis, unspecified, without bleeding; N18.9 Chronic kidney disease, unspecified; E87.8 Other disorders of electrolyte and fluid balance, not elsewhere classified; T38.0X5A Adverse effect of glucocorticoids and synthetic analogues, initial encounter; F03.90 Unspecified dementia, unspecified severity, without behavioral disturbance, psychotic disturbance, mood disturbance, and anxiety; D64.9 Anemia, unspecified; K21.0 Gastro-esophageal reflux disease with esophagitis; E61.1 Iron deficiency; Z95.2 Presence of prosthetic heart valve; Y92.89 Other specified places as the place of occurrence of the external cause; X58.XXXA Exposure to other specified factors, initial encounter